=== PATIENT | male | born 1990 | race Caucasian/White ===

== ENCOUNTER 2020-07-14 16:03 | Emergency (ER) | payer OTHER, SELFPAY ==
[2020-07-14 16:21] VITALS: BP 145/80; PULSE 97; RESP 22; TEMP 37.3; O2SAT 99; BMI 29.1
--- NOTE | 2020-07-14 16:23 | XR_ITS ---
EXAMINATION: XR CHEST CLINICAL INFORMATION: Cough COMPARISON: None TECHNIQUE: Frontal view of the chest was obtained. FINDINGS: Normal cardiac mediastinal silhouette. Lungs are hypoexpanded without consolidation. No pleural effusion or pneumothorax. Gaseous distention of the stomach with elevation of the left hemidiaphragm. IMPRESSION: No acute cardiopulmonary process.
--- NOTE | 2020-07-14 16:34 | ED_ITS ---
HPI - URI/Sore Throat General Chief Complaint: Dyspnea Stated Complaint: cough Time Seen by Provider: 07/14/20 16:14 Source: patient Mode of arrival: ambulatory Limitations: no limitations History of Present Illness HPI Narrative: Patient comes to the hospital complaining of coughing and shortness of breath starting yesterday. Patient states he has not had any fever, states he has been having body aches since yesterday. Patient does not have any contact with [employer] on the [place] . however, patient states that his girlfriend has been coughing as well MD elicited complaint: cough Pertinent past history: asthma ( seasonal asthma) Onset (ago): day(s) ( 1) Consistency: intermittent Severity: moderate Description of mucous: other Able to tolerate fluids by mouth: Yes Exacerbating factors: nothing Relieving factors: nothing Associated symptoms: chills, myalgias and shortness of breath Treatments prior to arrival: none Related Data Previous Rx's Medication Instructions Recorded benzonatate [Tessalon Perles] 100 mg PO TID PRN #30 cap 07/14/20 codeine-guaifenesin 10 ml PO Q4-6H PRN #473 ml 07/14/20 Allergies Allergy/AdvReac Type Severity Reaction Status Date / Time No Known Allergies Allergy Verified 07/14/20 16:22 Review of Systems Review of Systems: Constitutional: No Weight loss, No Fever, does have Chills, No Night Sweats, No Fatigue, No Malaise ENT/Mouth: No Hearing loss, No Ear Pain, No Nasal Congestion, No Sinus Pain, No Hoarseness, No sore throat, No Rhinorrhea, No Swallowing Difficulty Eyes: No Eye Pain, No Swelling, No Redness, No Foreign Body, No Discharge, No Vision Changes Cardiovascular: No Chest Pain, No SOB, No Dyspnea on Exertion, No Orthopnea, No Edema, No Palpitations Respiratory: Dry Cough, bibasilar crackels, No Wheezing, No Smoke Exposure, mild Dyspnea Gastrointestinal: No Nausea, No Vomiting, No Diarrhea, No Constipation, No abdominal Pain, No Hematochezia, No Melena Genitourinary: no irregular bleeding, No Dysuria, No Urinary Frequency, No Hematuria, No Urinary Incontinence, No Urgency, No Flank Pain, No Urinary Flow Changes, No Hesitancy Musculoskeletal: No joint pain, does have generalized Myalgias, No Joint Swe lling Skin: No Skin Lesions, No rash Neuro: No Weakness, No Numbness, No Paresthesias, No Loss of Consciousness, No Dizziness, No Headache Psych: No Anxiety/Panic, No Depression, No SI/HI/AH/VH, No Social Issues, Heme/Lymph: No Bruising, No Bleeding,No Lymphadenopathy Endocrine: No Polyuria, No Polydipsia, No Temperature Intolerance [facility] Past Medical History Medical History Cerebral palsy Seasonal asthma Social History Social History Alcohol intake: current Alcohol intake frequency: a few times a month Alcohol type: beer and wine Smoking Status: Never smoker Smoked in Last 30 Days: Yes Use of substances other than those prescribed or required for medical reasons: No Advance Directives: No Advance Directives Information Provided: Yes Physical Exam Vital Signs and I&O and Narrative: Vital Signs and I&O: Vital Signs Temp 97.7 F 07/14/20 20:05 Pulse 84 07/14/20 20:05 Resp 185 H 07/14/20 20:05 BP 126/77 07/14/20 20:05 Pulse Ox 99 07/14/20 20:05 Intake & Output 07/14/20 07/14/20 07/15/20 06:59 18:59 06:59 Intake Total 1000 / 1000 Balance 1000 / 1000 Weight 92.079 kg Intake: Intake, IV Amoun t 1000 / 1000 0.9 % Sodium C hloride 1,000 ml 1000 / 1000 @ 999 mls/hr I VCONT .Q1H1M [facility] Rx#:[id number] Body Mass Index 29.1 Appearance: Alert. Oriented X3. No acute distress, actively coughing Eyes: Pupils equal, round and reactive to light. ENT: Pharynx mildly erythematous Neck: Normal inspection. Neck supple. No lymph nodes noted. No crepitus CVS: Normal heart rate and rhythm. Pulses normal. Normal S1 and S2 Respiratory: No respiratory distress. bilateral crackles. No Wheezing. No rales Abdomen: Soft and nontender. No rigidity. No distention. good BS x4 Skin: Skin warm and dry. Normal skin color. Normal skin turgor. Extremities: No lower extremity edema. No lower extremity edema. No Lacerations. No Rash Neuro: Oriented X 3. No motor deficit. No sensory deficit. Moving all extermities. No slurred speech. Course Reevaluation(s) Reevaluation #1: patient is coughing improved, but still present. Time: 21:04 Reevaluation #2: I discussed with the patient his labs and imaging. Patient instructed to follow-up with his primary care physician. Patient's etiology of cough likely viral. COVID-19 rapid test negative MDM - URI/Sore Throat Lab Data Result diagrams: 07/14/20 16:57 07/14/20 16:57 Labs: Lab Results 07/14/20 07/14/20 07/14/20 Range/Units 16:57 16:57 16:57 WBC 7.2 (4.8-10.8) X10*3/uL RBC 5.61 (4.60-5.80) X10*6/uL Hgb 16.3 (14.0-18.0) g/dl Hct 49.2 (42-52) % MCV 87.7 (80-98) fL MCH 29.1 (27.0-33.0) pg MCHC 33.1 (31.0-36.0) g/dl RDW 12.2 (11.0-16.0) % Plt Count 236 (160-400) X10*3/uL MPV 9.8 (9.4-12.4) fL Immature Gran % (Auto) 0.3 (0.0-0.4) % Neut % (Auto) 56.4 (45-73) % Lymph % (Auto) 28.5 (20-40) % [place] % (Auto) 12.0 H (2-11) % Eos % (Auto) 2.5 (0-4) % Baso % (Auto) 0.3 (0-2) % Lymph # (Auto) 2.1 (1.2-4.9) X10*3/uL [place] # (Auto) 0.9 (0.1-1.2) X10*3/uL Eos # (Auto) 0.2 (0.0-0.4) X10*3/uL Baso # (Auto) 0.0 (0.0-0.2) X10*3/uL Abs Immat Gran (auto) 0.02 (0.00-0.03) X10*3/uL Absolute Neuts (auto) 4.1 (2.0-8.3) X10*3/uL Absolute Nucleated RBC 0.000 (0.0-0.012) X10*3/uL Nucleated RBC % (auto) 0.0 (0.0-0.2) /100WBC Hold Blue Top SEE NOTE Sodium 140 (135-145) mmol/L Potassium 3.8 (3.3-5.1) mmol/l Chloride 108 (96-108) mmol/L Carbon Dioxide 19 L (22-29) mmol/L Anion Gap 17 (12-20) BUN 12 (9-16) mg/dL Creatinine 0.98 (0.5-1.4) mg/dL Estim Creat Clear Calc 127.9 Estimated GFR > 60 Random Glucose 96 (60-115) mg/dL Lactic Acid (0.5-2.0) mmol/L Lactic Acid Fup @ 2Hr (0.5-2.0) mmol/L Calcium 9.6 (8.4-10.2) mg/dL Coronavirus (PCR) (Negative) COVID-19 PCR 07/14/20 07/14/20 07/14/20 Range/Units 16:57 16:57 18:06 WBC (4.8-10.8) X10*3/uL RBC (4.60-5.80) X10*6/uL Hgb (14.0-18.0) g/dl Hct (42-52) % MCV (80-98) fL MCH (27.0-33.0) pg MCHC (31.0-36.0) g/dl RDW (11.0-16.0) % Plt Count (160-400) X10*3/uL MPV (9.4-12.4) fL Immature Gran % (Auto) (0.0-0.4) % Neut % (Auto) (45-73) % Lymph % (Auto) (20-40) % [place] % (Auto) (2-11) % Eos % (Auto) (0-4) % Baso % (Auto) (0-2) % Lymph # (Auto) (1.2-4.9) X10*3/uL [place] # (Auto) (0.1-1.2) X10*3/uL Eos # (Auto) (0.0-0.4) X10*3/uL Baso # (Auto) (0.0-0.2) X10*3/uL Abs Immat Gran (auto) (0.00-0.03) X10*3/uL Absolute Neuts (auto) (2.0-8.3) X10*3/uL Absolute Nucleated RBC (0.0-0.012) X10*3/uL Nucleated RBC % (auto) (0.0-0.2) /100WBC Hold Blue Top Sodium (135-145) mmol/L Potassium (3.3-5.1) mmol/l Chloride (96-108) mmol/L Carbon Dioxide (22-29) mmol/L Anion Gap (12-20) BUN (9-16) mg/dL Creatinine (0.5-1.4) mg/dL Estim Creat Clear Calc Estimated GFR Random Glucose (60-115) mg/dL Lactic Acid 2.1 H* (0.5-2.0) mmol/L Lactic Acid Fup @ 2Hr (0.5-2.0) mmol/L Calcium (8.4-10.2) mg/dL Coronavirus (PCR) NEGATIVE (Negative) COVID-19 PCR Cancelled 07/14/20 Range/Units 20:08 WBC (4.8-10.8) X10*3/uL RBC (4.60-5.80) X10*6/uL Hgb (14.0-18.0) g/dl Hct (42-52) % MCV (80-98) fL MCH (27.0-33.0) pg MCHC (31.0-36.0) g/dl RDW (11.0-16.0) % Plt Count (160-400) X10*3/uL MPV (9.4-12.4) fL Immature Gran % (Auto) (0.0-0.4) % Neut % (Auto) (45-73) % Lymph % (Auto) (20-40) % [place] % (Auto) (2-11) % Eos % (Auto) (0-4) % Baso % (Auto) (0-2) % Lymph # (Auto) (1.2-4.9) X10*3/uL [place] # (Auto) (0.1-1.2) X10*3/uL Eos # (Auto) (0.0-0.4) X10*3/uL Baso # (Auto) (0.0-0.2) X10*3/uL Abs Immat Gran (auto) (0.00-0.03) X10*3/uL Absolute Neuts (auto) (2.0-8.3) X10*3/uL Absolute Nucleated RBC (0.0-0.012) X10*3/uL Nucleated RBC % (auto) (0.0-0.2) /100WBC Hold Blue Top Sodium (135-145) mmol/L Potassium (3.3-5.1) mmol/l Chloride (96-108) mmol/L Carbon Dioxide (22-29) mmol/L Anion Gap (12-20) BUN (9-16) mg/dL Creatinine (0.5-1.4) mg/dL Estim Creat Clear Calc Estimated GFR Random Glucose (60-115) mg/dL Lactic Acid (0.5-2.0) mmol/L Lactic Acid Fup @ 2Hr 1.2 (0.5-2.0) mmol/L Calcium (8.4-10.2) mg/dL Coronavirus (PCR) (Negative) COVID-19 PCR Imaging Data Chest x-ray: My impression: no acute abnormality Radiologist's impression: Normal cardiac mediastinal silhouette. Lungs are hypoexpanded without consolidation. No pleural effusion or pneumothorax. Gaseous distention of the stomach with elevation of the left hemidiaphragm. Discharge Plan Discharge Clinical Impression: Bronchitis, Cough Patient Disposition: Home, Self-Care Instructions: Acute Bronchitis (ED) Additional Instructions: please follow-up with your primary care physician. If you have any worsening symptoms, any new symptoms, please return to the emergency room or call 911 Prescriptions: New benzonatate [Tessalon Perles] 100 mg capsule 100 mg PO TID PRN (Reason: cough) Qty: 30 RF: 0 codeine-guaifenesin 6.3-100 mg/5 mL liquid 10 ml PO Q4-6H PRN (Reason: cough) Qty: 473 RF: 0
[2020-07-14] MEDS: Benzonatate 100 MG CAPSULE PO (17:01)
[2020-07-14 17:03] LABS: MANUAL DIFF FLAG NO
[2020-07-14 17:06] LABS: Basophils Percent Auto 0.3 % (0-2); Eosinophils Absolute Auto 0.2 X10*3/uL (0.0-0.4); Eosinophils Percent Auto 2.5 % (0-4); Hematocrit 49.2 % (42-52); Hemoglobin 16.3 g/dl (14.0-18.0); Imm Gran Abs Auto 0.02 X10*3/uL (0.00-0.03); Imm Gran Pct Auto 0.3 % (0.0-0.4); Lymphocytes Absolute Auto 2.1 X10*3/uL (1.2-4.9); Lymphocytes Percent Auto 28.5 % (20-40); Mean Corpuscular HGB Conc 33.1 g/dl (31.0-36.0); Mean Corpuscular Hemoglobin 29.1 pg (27.0-33.0); Mean Corpuscular Volume 87.7 fL (80-98); Mean Platelet Volume 9.8 fL (9.4-12.4); Monocytes Absolute Auto 0.9 X10*3/uL (0.1-1.2); Neutrophils Absolute Auto 4.1 X10*3/uL (2.0-8.3); Neutrophils Percent Auto 56.4 % (45-73); Platelet Count 236 X10*3/uL (160-400); Red Blood Count 5.61 X10*6/uL (4.60-5.80); Red Cell Distribution Width 12.2 % (11.0-16.0); White Blood Count 7.2 X10*3/uL (4.8-10.8)
[2020-07-14 17:31] VITALS: PULSE 76; O2SAT 99
[2020-07-14] MEDS: guaiFENesin 200 MG/10 ML 10 ML LIQUID PO (17:36)
[2020-07-14 17:42] LABS: Anion Gap 17 (12-20); Blood Urea Nitrogen 12 mg/dL (9-16); Calcium 9.6 mg/dL (8.4-10.2); Carbon Dioxide 19 mmol/L (22-29); Chloride 108 mmol/L (96-108); Creatinine Clr Calc Pharmacy 127.9; Estimated Glomerular Filt Rate > 60; Glucose Random 96 mg/dL (60-115); Potassium 3.8 mmol/l (3.3-5.1); Sodium 140 mmol/L (135-145)
[2020-07-14 17:48] LABS: Lactic Acid 2.1 mmol/L (0.5-2.0)
[2020-07-14 18:27] VITALS: BP 121/71; PULSE 89; RESP 18; TEMP 37.1; O2SAT 97
[2020-07-14] MEDS: 0.9 % Sodium Chloride 1,000 ML 999 ML IVCONT (18:52)
[2020-07-14] MEDS: Ibuprofen 600 MG TABLET PO (18:59)
[2020-07-14 19:02] LABS: Reflex Lactate? Lactic Acid Added
[2020-07-14 19:05] VITALS: BP 143/65; PULSE 93; RESP 18; TEMP 37.4; O2SAT 99
[2020-07-14 19:40] LABS: SARS COV2 PCR INHOUSE NEGATIVE (Negative)
[2020-07-14 20:05] VITALS: BP 126/77; PULSE 84; RESP 185; TEMP 36.5; O2SAT 99
--- NOTE | 2020-07-14 20:10 | PC.NURSE ---
repeat lactic drawn. vitals wnl. pt in nad. pt recieved 1 l ns and motrin po.
[2020-07-14 20:53] LABS: ~Lactic Acid-LAB USE ONLY 1.2 mmol/L (0.5-2.0)
== END 2020-07-14 21:33 | disposition home or self-care (01) ==
PROVIDERS: Emergency Provider Emergency Medicine
DX: J40 Bronchitis, not specified as acute or chronic (principal); Z20.828 Contact with and (suspected) exposure to other viral communicable diseases
CPT/HCPCS: 36415; 71045; 80048; 83605; 85025; 87040; 87635; 96360; 99285